=== PATIENT | female | born 1970 | race Caucasian/White ===

== ENCOUNTER 2017-04-21 19:28 | Inpatient (IN) | payer BC ==
[2017-04-21] MEDS ORDERED: 0.9 % SODIUM CHLORIDE 1,000 ML BAG IV ONE ×2 (19:56→21:53)
[2017-04-21] MEDS ORDERED: ACETAMINOPHEN 325 MG TAB PO ONE (19:56)
[2017-04-21] MEDS ORDERED: IBUPROFEN 600 MG TABLET PO ONE (19:56)
--- NOTE | 2017-04-21 20:03 | Emergency Department Record ---
History of Present Illness - General Chief complaint: Rash Stated complaint: CELLULITIS Time Seen by Provider: 04/21/17 19:45 Source: Patient Mode of Arrival: Ambulatory Limitations: No limitations - History of Present Illness Initial comments: The patient is here due to noticing a painful rash to the L lower leg this AM that now is getting worse. She has felt feverish today also and did go to a UC earlier today and was started on Keflex for the cellulitis. Due to not feeling well she came to the ER for further evaluation. The patient denies any weakness , lightheadedness, CP, SOB, or ALFREDO but does state she has a hx of Cellulitis in the past similar to this. She also has been coughing somewhat recently and is a heavy smoker. complaint: Rash Onset/Timin -: Hour(s) Location: LLE Severity: Mild Severity scale (1-10): 5 Quality: Other Consistency: Getting worse Improves with: None Worsens with: None Context: None Associated symptoms: Fever Treatments Prior to Arrival: None - Related Data Allergies Allergy/AdvReac Type Severity Reaction Status Date / Time Penicillins AdvReac Mild PT UNSURE Unverified 04/21/17 19:00 OF REACTION steroids AdvReac pt thinks Uncoded 04/21/17 19:39 it may possibly be causing her cellulitis Travel Screening - Travel/Exposure Within Last 30 Days Have you traveled within the last 30 days?: No - Travel/Exposure Within Last Year Have you traveled outside the [place] in the last year?: No - Additonal Travel Details Have you been exposed to anyone with a communicable illness?: No - Travel Symptoms Symptom Screening: None Review of Systems Constitutional: Reports: Chills, Fever, Malaise Eyes: Denies: Eye discharge ENT: Denies: Congestion Respiratory: Denies: Cough, Dyspnea Past Medical History - SOCIAL HISTORY Smoking Status: Current every day smoker Alcohol Use: Occasional Drug Use: None - RESPIRATORY Hx Respiratory Disorders: No - CARDIOVASCULAR Hx Cardio Disorders: Yes Hx Hypotension: Yes - NEURO Hx Neuro Disorders: No - GI Hx GI Disorders: No - Hx Genitourinary Disorders: No - ENDOCRINE Hx Endocrine Disorders: No - MUSCULOSKELETAL Hx Musculoskeletal Disorders: No - PSYCH Hx Psych Problems: No - HEMATOLOGY/ONCOLOGY Hx Hematology/Oncology Disorders: No Comment:: cellulitis in the past. Family Medical History Any Significant Family History?: No Physical Exam - General General Appearance: Alert, Oriented x3, Cooperative, No acute distress - Head Head exam: Atraumatic, Normocephalic, Normal inspection - Eye Eye exam: Normal appearance, PERRL - ENT Throat exam: Normal inspection. negative: Tonsillar erythema, Tonsillar exudate - Neck Neck exam: Normal inspection, Full ROM. negative: Tenderness - Respiratory Respiratory exam: Normal lung sounds bilaterally. negative: Accessory muscle use, Rales, Respiratory distress, Rhonchi, Stridor, Wheezes - Cardiovascular Cardiovascular Exam: Regular rate, Normal rhythm, Normal heart sounds - GI/Abdominal GI/Abdominal exam: Soft, Normal bowel sounds. negative: Tenderness - Extremities Extremities exam: Normal capillary refill, Tenderness. negative: Normal inspection (There is significant erythema to the medial L lower leg with mild tenderness.), Full ROM - Neurological Neurological exam: Alert. negative: Motor sensory deficit Course Vital Signs 04/21/17 04/21/17 19:31 19:41 Temperature 100.6 F H 101.8 F H Pulse Rate 105 H Pulse Rate [ 108 H Pulse Ox Probe] Respiratory 20 20 Rate Blood Pressure 89/62 Blood Pressure 99/61 [Left Arm] Pulse Ox 93 L 92 L - Reevaluation(s) Reevaluation #1: The patient is doing very well at this time and is very stable. I did discuss the need to stay in the hospital overnight and she does agree. I then did discuss the case with Meenakshi ([employer]) who does accept the patient for Dr. Allen. 04/21/17 21:09 Medical Decision Making - Data Complexity MDM Data: Labs Ordered and/or Reviewed, X-Ray Ordered and/or Reviewed - Lab Data Result diagrams: 04/21/17 20:04 04/21/17 20:04 - Radiology Data Radiology results: Report reviewed (L leg: Neg for any gas. CXR: RLL infiltrate.) Disposition Disposition: Admit Clinical Impression: Cellulitis of lower leg Disposition: Still a Patient at [facility] Decision to Admit: Admit from ER Decision to Admit Date: 04/21/17 Decision to Admit Time: 21:10 Accepting Physician: Tiffany Time Discussed w/Accepting Physician: 21:10 Condition: (2) Stable Time of Disposition: 21:10 Quality - Quality Measures Quality Measures: N/A - Blood Pressure Screening View Details: Yes Does Patient Have Any of the Following: No Blood Pressure Classification: Normal BP Reading Systolic Measurement: 89 Diastolic Measurement: 62 Screening for High Blood Pressure: < Normal BP, F/U Not Required > [G8730]
[2017-04-21] MEDS ORDERED: CEFTRIAXONE SODIUM 1 GM in 0.9 % SODIUM CHLORIDE 100ML 100 ML IVPB ONE (20:04)
[2017-04-21 20:14] LABS: HEMATOCRIT 45.1 % (35.0-47.0); HEMOGLOBIN 15.8 gm/dl (11.6-16.0); MEAN CELL VOLUME 91.3 fl (81-97); MEAN PLATELET VOLUME 10.5 fl (7.4-10.4); PLATELET COUNT 217 K/uL (130-400); RED BLOOD COUNT 4.94 M/uL (3.80-5.40); RED CELL DISTRIBUTION WIDTH 14.2 % (11.5-14.5); WHITE BLOOD COUNT W/O DIFF 17.4 K/uL (4.2-12.2)
[2017-04-21 20:29] LABS: ALKALINE PHOSPHATASE 67 U/L (35-104); ALT/SGPT 43 U/L (<33); AST/SGOT 28 U/L (10.0-35.0); BILIRUBIN,DIRECT 0.2 mg/dL (0-0.3); BLOOD UREA NITROGEN 33.1 mg/dL (12.6-42.6); C-REACTIVE PROTEIN 12.67 mg/L (<5.0); CREATININE 0.9 mg/dL (0.5-0.9); EST GLOMERULAR FILTRATION RATE > 60 mL/min; GLUCOSE,RANDOM 112 mg/dL (74-109)
[2017-04-21] MEDS ORDERED: AZITHROMYCIN 500 MG in 0.9 % SODIUM CHLORIDE 250ML 250 ML IVPB ONE (21:48)
[2017-04-21] MEDS ORDERED: CEFTRIAXONE SODIUM 1 GM in 0.9 % SODIUM CHLORIDE 100ML 100 ML IVPB SCH (23:04)
[2017-04-21] MEDS ORDERED: IBUPROFEN 600 MG TABLET PO PRN (23:04)
[2017-04-21] MEDS ORDERED: ALBUTEROL HFA 8 GM INHALER INH SCH (23:04)
[2017-04-22] MEDS: ACETAMINOPHEN 500 MG TABLET PO PRN ×2 (04:36→16:40)
--- NOTE | 2017-04-22 07:17 | RADIOLOGY REPORT ---
EXAM: LEFT LOWER LEG HISTORY: PAIN. TECHNIQUE: Two views of the left lower leg were obtained. Comparison: None. Encounter: Initial. FINDINGS: Negative for fracture or dislocation. The soft tissues are unremarkable. IMPRESSION: NEGATIVE LEFT LOWER LEG EXAMINATION. JOB NUMBER: [id number] MTDD
--- NOTE | 2017-04-22 07:19 | RADIOLOGY REPORT ---
EXAM: CHEST, TWO VIEWS HISTORY: COUGH. TECHNIQUE: Frontal and lateral views of the chest were obtained. Comparison: None. FINDINGS: The heart size is normal. Air space opacity of the right middle lobe and right lung base consistent with pneumonia. Small right pleural effusion also noted. No pneumothorax. Scarring in the left perihilar region. IMPRESSION: RIGHT MIDDLE/RIGHT LOWER LOBE PNEUMONIA. SMALL RIGHT PLEURAL EFFUSION. RECOMMEND FOLLOW-UP UNTIL RESOLUTION. JOB NUMBER: [id number] MTDD
[2017-04-22] MEDS: LORATADINE 10 MG TABLET PO SCH (09:11)
[2017-04-22 09:32] LABS: BASO % 0.2 % (0-6); GRAN % 78.4 % (47-80); HEMATOCRIT 42.2 % (35.0-47.0); HEMOGLOBIN 14.5 gm/dl (11.6-16.0); LYMPH % 10.3 % (16-45); MEAN CELL VOLUME 93.6 fl (81-97); MEAN CORPUSCULAR HEMOGLOBIN 32.2 pg (27-33); MEAN CORPUSCULAR HGB CONC 34.4 g/dl (32-36); MEAN PLATELET VOLUME 10.2 fl (7.4-10.4); MONO % 11.1 % (0-9); PLATELET COUNT 197 K/uL (130-400); RED BLOOD COUNT 4.51 M/uL (3.80-5.40); RED CELL DISTRIBUTION WIDTH 14.3 % (11.5-14.5); WHITE BLOOD COUNT W/O DIFF 8.7 K/uL (4.2-12.2)
[2017-04-22] MEDS: ALBUTEROL HFA 8 GM INHALER INH PRN ×2 (10:31→19:11)
--- NOTE | 2017-04-22 10:31 | History & Physical ---
History of Present Illness - Date of Service Date of Service for History & Physical: 04/22/17 - History of Present Illness Admitting Diagnosis: 1. Acute L leg Cellulitis History of Present Illness: Mrs. Fitzgerald is a 46 y/o female who presents with complaint of cough productive of yellow sputum since the weekend and subsequent left lower extremity robledo and swelling beginning yesterday. She went to an urgent care facility in [place] on Thursday with complaint of 'cold like' symptoms and at the time was given a steroid injection, but is not quite sure why. Her symptoms progressed and she began feeling weak, had fevers continued cough and noticed severe left leg pain , swelling and rash developing over her david/calf. The patient denies any leg injury, scratches, skin abrasions, history of clots, easy bruising or bleeding disorders. She returned to the urgent care yesterday and was given one dose of Keflex, with prescription for home dosing. Having continuous pain of the leg and no resolution of symptoms the patient decided to come into the [facility] ED and at that time was found to have right middle /lower lobe infiltrates and small pleural effusion. In addition she was noted to have a severe cellulitis of the left lower extremity but xray was negative for any extensive soft tissue swelling or fracture. She was started on empiric antibiotics and admitted to the general medical floor for further evaluation. Travel Screening - Travel/Exposure Within Last 30 Days Have you traveled within the last 30 days?: No - Travel/Exposure Within Last Year Have you traveled outside the [place] in the last year?: No - Additonal Travel Details Have you been exposed to anyone with a communicable illness?: No - Travel Symptoms Symptom Screening: None Review of Systems Constitutional: Reports: Chills, Fever, Malaise Eyes: Denies: Eye discharge ENT: Denies: Congestion Respiratory: Reports: Cough (productive of green/yellow phlegm ). Denies: Dyspnea Endocrine: Reports: As per HPI. Denies: Fatigue, Heat or cold intolerance, Polydipsia, Polyuria Gastrointestinal: Reports: As per HPI. Denies: Abdominal pain, Constipation, Diarrhea, Hematemesis, Hematochezia, Melena, Nausea, Vomiting Genitourinary: Reports: As per HPI. Denies: Abnormal menses, Discharge, Dyspareunia, Dysuria, Frequency, Hematuria, Incontinence, Retention, Urgency Musculoskeletal: Reports: Other (left leg pain and swelling) Skin: Reports: Other (left leg pain/tenderness ) Neurological: Reports: Headache Psychiatric: Reports: As per HPI. Denies: Anxiety, Auditory hallucinations, Depression, Homicidal thoughts, Suicidal thoughts, Visual hallucinations Hematological/Lymphatic: Denies: Anemia, Blood Clots, Easy bleeding, Easy bruising Past Medical History - SOCIAL HISTORY Smoking Status: Current every day smoker Alcohol Use: Occasional Drug Use: None - RESPIRATORY Hx Respiratory Disorders: No Hx COPD: No - CARDIOVASCULAR Hx Cardio Disorders: No Hx Hypotension: Yes Hx Vascular Disease: Yes (varicosties s/p bilateral LE stripping) - NEURO Hx Neuro Disorders: No - GI Hx GI Disorders: No - Hx Genitourinary Disorders: No - ENDOCRINE Hx Endocrine Disorders: No Hx Diabetes: No - MUSCULOSKELETAL Hx Musculoskeletal Disorders: No - PSYCH Hx Psych Problems: No Hx Depression: No - HEMATOLOGY/ONCOLOGY Hx Hematology/Oncology Disorders: No Hx Blood Disorders: No Hx Bruising: No Hx Clotting Problems: No Hx Unexplained Bleeding: No Comment:: cellulitis in the past. Family Medical History Any Significant Family History?: Yes Hx Cancer: Mother Hx Diabetes: Father Hx Heart Disease: Father H&P Meds/Allergies - Allergies Allergies: Allergies Allergy/AdvReac Type Severity Reaction Status Date / Time Penicillins AdvReac Mild PT UNSURE Unverified 04/21/17 19:00 OF REACTION steroids AdvReac pt thinks Uncoded 04/21/17 19:39 it may possibly be causing her cellulitis - Active Medications Active Medications: Current Medications Acetaminophen (Tylenol 500mg Tab) 650 mg PO Q6H PRN PRN Reason: PAIN/TEMP Last Admin: 04/22/17 04:36 Dose: 650 mg Acetaminophen/Codeine Phosphate (Tylenol #3) 1 udtab PO Q4H PRN PRN Reason: Pain - General Albuterol Sulfate (Ventolin Hfa) 2 puff INH Q4H PRN PRN Reason: SHORTNESS OF BREATH Enoxaparin Sodium (Lovenox) 40 mg SQ DAILY [facility] Ceftriaxone Sodium 1 gm/ (Sodium Chloride) 100 mls @ 100 mls/hr IVPB Q12H RONAK Stop: 04/26/17 23:05 Last Admin: 04/21/17 23:38 Dose: Not Given Ibuprofen (Motrin 600mg) 600 mg PO Q8H PRN PRN Reason: FEVER/PAIN Loratadine (Claritin) 10 mg PO DAILY RONAK Last Admin: 04/22/17 09:11 Dose: 10 mg Physical Exam - Vital Signs Vital Signs: Vital Signs - Last 24 Hrs Temp Pulse Resp BP BP Pulse Ox 04/22/17 09:15 99.2 F 90 18 92/62 92 L 04/22/17 05:00 98.5 F 98 H 20 119/71 95 04/21/17 23:04 98.7 F 80 18 85/52 93 L - General General Appearance: Alert, Oriented x3, Cooperative, No acute distress Limitations: No limitations - Head Head exam: Atraumatic, Normocephalic, Normal inspection Head exam detail: Other (hyperpigmentation of face ) - Eye Eye exam: Normal appearance, PERRL - ENT Throat exam: Normal inspection. negative: Tonsillar erythema, Tonsillar exudate - Neck Neck exam: Normal inspection, Full ROM. negative: Tenderness - Respiratory Respiratory exam: Normal lung sounds bilaterally. negative: Accessory muscle use, Rales, Respiratory distress, Rhonchi, Stridor, Wheezes - Cardiovascular Cardiovascular Exam: Regular rate, Normal rhythm, Normal heart sounds - GI/Abdominal GI/Abdominal exam: Soft, Normal bowel sounds. negative: Tenderness - Rectal Rectal exam: Deferred - exam: Deferred - Extremities Extremities exam: Normal capillary refill, Tenderness (left lower extremity pain ant/post with radiation from knee to ankle. + Robin's sign ). negative: Normal inspection (There is significant erythema to the medial L lower leg with mild tenderness.), Full ROM - Neurological Neurological exam: Alert, CN II-XII intact, Normal gait, Oriented X3. negative : Motor sensory deficit - Psychiatric Psychiatric exam: negative: Anxious, Depressed - Skin Skin exam: negative: Other (left distal lower extremity hyperpigmentation, erythema ) Type of lesion: Rash Results - Labs Result Diagrams: 04/22/17 09:26 04/21/17 20:04 Labs Last 24 Hours: Laboratory Results - last 24 hr 04/22/17 09:26 WBC 8.7 RBC 4.51 Hgb 14.5 Hct 42.2 MCV 93.6 MCH 32.2 MCHC 34.4 RDW 14.3 Plt Count 197 MPV 10.2 Gran % 78.4 Lymphocytes % 10.3 L Monocytes % 11.1 H Eosinophils % 0.0 Basophils % 0.2 VTE H&P Assessment - Risk for VTE Risk for VTE: Yes Risk Level: Moderate Risk Assessment Date: 04/22/17 Risk Assessment Time: 10:38 VTE Orders Placed or Will Be Placed: Yes Plan - Inpatient Certification Inpatient Certification: Admit to inpatient care: Based on my medical assessment, after consideration of patient's risk factors (age, co-morbidities and patient presenting symptoms and acuity), I expect that this patient will remain in the hospital greater than or equal to two midnights and that the services needed warrant inpatient care because: Patient Risk Factors: [Smoking, previous hx of cellulitis] Estimated length of stay: [ 2 days] The patient may reasonably be expected to be discharged or transferred to a hospital within 96 hours after admission to [facility]. Services needed: [] I certify that my determination is in accordance with my understanding of Medicare requirements for reasonable and necessary inpatient services. - Detailed Diagnosis and Plan (1) Sepsis Plan: Sepsis secondary to: CAP and left lower extremity cellulitis. - patient presents with productive cough/fever/hypotensive and elevated WBCs 17.7 --> 8.7 - CXR - shows evidence of RLL infiltrate, ordered sputum G/C, would be ideal if obtained prior to empiric abx. - received 1 liter Nacl 0.9% bolus, cont fluids @ 125mL/hr. Abx: Ceftriaxone/ Azithromycin IV as ordered. - will f/u BCX and sputum G/C. Current Visit: Yes Status: Acute Base Code: A41.9 - SEPSIS, UNSPECIFIED ORGANISM (2) Left leg cellulitis Plan: - left leg swelling, tenderness and well demarcated erythema. - xray is not suggestive of any acute dislocation/fracture, or soft tissues swelling. - cont antibiotics: Ceftriaxone/Azithromycin IV, will change to PO Abx pending cultures. - started Tylenol #3, 1 tab Q4H PRN Current Visit: Yes Status: Acute Base Code: L03.116 - CELLULITIS OF LEFT LOWER LIMB Onset Date: ~04/20/17 (3) Community acquired pneumonia Plan: - CXR shows: right middle/lower lobe infiltrate. CURB -65 score 0 - pending blood cultures, sputum G/C - continue antibiotics: Azithromycin/Ceftriaxone IV, change to PO meds pending labs. - oxygen via nasal cannula to maintain sats > 92%, respiratory treatments w/ albuterol Q4H PRN Current Visit: Yes Status: Acute Base Code: J18.9 - PNEUMONIA, UNSPECIFIED ORGANISM (4) Hyponatremia Plan: - mild hyponatremia, likely due to dehydration from sepsis. - replete fluids and repeat morning electrolytes. Current Visit: Yes Status: Acute Base Code: E87.1 - HYPO-OSMOLALITY AND HYPONATREMIA (5) Tobacco abuse Plan: - 20pk/yr smoking hx as per patient. - will order nicotine daily patch. Current Visit: Yes Status: Acute Base Code: Z72.0 - TOBACCO USE (6) Tobacco abuse counseling Plan: - smoking cessation advised - patient has expressed a willingness to quit and we would recommend outpatient support in this regard. Current Visit: Yes Status: Acute Base Code: Z71.6 - TOBACCO ABUSE COUNSELING (7) Full code status Plan: - patient is FULL CODE at this time. Current Visit: Yes Status: Acute Base Code: Z78.9 - OTHER SPECIFIED HEALTH STATUS - Disposition At this time the patient is in stable condition. I anticipate that she will be d /cd in 2-3 days with antibiotic course to be completed at home.
[2017-04-22] MEDS: CEFTRIAXONE SODIUM 1 GM in 0.9 % SODIUM CHLORIDE 100ML 100 ML IVPB SCH ×2 (10:44→23:09)
[2017-04-22] MEDS: ACETAMINOPHEN W/ CODEINE 300MG/30MG TABLET PO PRN ×2 (10:45→16:40)
--- NOTE | 2017-04-22 14:44 | Inpatient Certification ---
Inpatient Certification Admit to inpatient care: Based on my medical assessment, after consideration of patient's risk factors (age, co-morbidities and patient presenting symptoms and acuity), I expect that this patient will remain in the hospital greater than or equal to two midnights and that the services needed warrant inpatient care because: Estimated length of stay: [2] The patient may reasonably be expected to be discharged or transferred to a hospital within 96 hours after admission to [facility]. I certify that my determination is in accordance with my understanding of Medicare requirements for reasonable and necessary inpatient services. 04/22/17 14:43
[2017-04-22] MEDS: NICOTINE 21 MG/24 HOUR PATCH TD SCH ×2 (16:35→17:12)
[2017-04-22] MEDS: HYDROCODONE/APAP 7.5/325MG TABLET PO SCH ×2 (19:28→23:09)
[2017-04-23] MEDS: ALBUTEROL HFA 8 GM INHALER INH PRN ×2 (04:15→20:00)
[2017-04-23] MEDS: HYDROCODONE/APAP 7.5/325MG TABLET PO SCH ×6 (04:16→23:54)
[2017-04-23] MEDS: ENOXAPARIN 40 MG/0.4 ML SYR SQ SCH (09:20)
[2017-04-23] MEDS: LORATADINE 10 MG TABLET PO SCH (09:20)
[2017-04-23] MEDS: CEFTRIAXONE SODIUM 1 GM in 0.9 % SODIUM CHLORIDE 100ML 100 ML IVPB SCH (10:37)
[2017-04-23] MEDS ORDERED: CEFDINIR 300 MG CAPSULE PO ONE (13:50)
[2017-04-23] MEDS: AZITHROMYCIN 500 MG TABLET PO SCH (14:40)
[2017-04-23] MEDS: NICOTINE 21 MG/24 HOUR PATCH TD SCH (15:25)
[2017-04-24] MEDS: HYDROCODONE/APAP 7.5/325MG TABLET PO SCH (04:38)
--- NOTE | 2017-04-24 07:16 | US VENOUS DOPPLER REPORT ---
EXAM: VENOUS DOPPLER ULTRASOUND OF THE BILATERAL LOWER EXTREMITIES HISTORY: CELLULITIS. TECHNIQUE: Chapa scale, color Doppler and Duplex Doppler evaluation of the deep venous structures of each lower extremity was performed from the level of the common femoral vein through the lower legs. Comparison: Two view radiographic examination of the left lower leg dated . FINDINGS: RIGHT LOWER EXTREMITY: The deep venous structures are well visualized from the common femoral vein through the lower leg. They are anechoic and easily compressible. Normal Doppler venous waveforms are noted from the common femoral vein level to the popliteal vein level and are augmentable. No soft tissue abnormality. LEFT LOWER EXTREMITY: The deep venous structures are well visualized from the common femoral vein through the lower leg veins. These are anechoic and compressible. Normal venous waveforms are noted from the common femoral vein level through the popliteal vein level and are augmentable. There is a normal appearing lymph node within the medial left thigh measuring 1 cm short axis diameter. IMPRESSION: NO EVIDENCE OF DEEP VENOUS THROMBOSIS WITHIN EITHER LOWER EXTREMITY. NORMAL APPEARING LYMPH NODE IN THE MEDIAL LEFT THIGH MEASURING 10 MM IN SHORT AXIS DIAMETER. JOB NUMBER: [id number] [facility]
--- NOTE | 2017-04-24 08:30 | Discharge Summary ---
Providers Discharge Summary Date: 04/24/17 Date of admission: 04/21/17 22:55 Attending physician: LANCE CORLEY Physical Exam - Vital Signs Vital Signs: Vital Signs - Last 24 Hrs Temp Pulse Pulse Resp BP Pulse Ox 04/23/17 20:00 98.7 F 80 81 16 95/61 95 04/23/17 12:00 87 18 92/52 94 L 04/23/17 09:00 87 18 - General General Appearance: Alert, Oriented x3, Cooperative, No acute distress Limitations: No limitations - Head Head exam: Atraumatic, Normocephalic, Normal inspection Head exam detail: Other (hyperpigmentation of face ) - Eye Eye exam: Normal appearance, PERRL - ENT Throat exam: Normal inspection. negative: Tonsillar erythema, Tonsillar exudate - Neck Neck exam: Normal inspection, Full ROM. negative: Tenderness - Respiratory Respiratory exam: Normal lung sounds bilaterally. negative: Accessory muscle use, Rales, Respiratory distress, Rhonchi, Stridor, Wheezes - Cardiovascular Cardiovascular Exam: Regular rate, Normal rhythm, Normal heart sounds - GI/Abdominal GI/Abdominal exam: Soft, Normal bowel sounds. negative: Tenderness - Rectal Rectal exam: Deferred - exam: Deferred - Extremities Extremities exam: Normal capillary refill, Tenderness (left lower extremity pain ant/post with radiation from knee to ankle. + Robin's sign ). negative: Normal inspection (There is significant erythema to the medial L lower leg with mild tenderness.), Full ROM - Neurological Neurological exam: Alert, CN II-XII intact, Normal gait, Oriented X3. negative : Motor sensory deficit - Psychiatric Psychiatric exam: negative: Anxious, Depressed - Skin Skin exam: negative: Other (left distal lower extremity hyperpigmentation, erythema ) Type of lesion: Rash Hospitalization - Hospitalization Admission Diagnosis: 1. Acute L leg Cellulitis - Problem List/Discharge Diagnosis (1) Sepsis Plan: Sepsis secondary to: CAP and left lower extremity cellulitis. - patient presents with productive cough/fever/hypotensive and elevated WBCs 17.7 --> 8.7 - CXR - shows evidence of RLL infiltrate, ordered sputum G/C, would be ideal if obtained prior to empiric abx. - received 1 liter Nacl 0.9% bolus, cont fluids @ 125mL/hr. Abx: Ceftriaxone/ Azithromycin IV as ordered. - will f/u BCX and sputum G/C. Current Visit: Yes Status: Resolved Base Code: A41.9 - SEPSIS, UNSPECIFIED ORGANISM (2) Left leg cellulitis Plan: - left leg swelling, tenderness and well demarcated erythema. - xray is not suggestive of any acute dislocation/fracture, or soft tissues swelling. - patient was on Ceftriaxone/Zithromax, changed to Zithromax/Cefidir QD to be continued home for a remaining 3 days. - there was suspicion of DVT after she had increasing pain and swelling but the lower ext doppler US was negative Current Visit: Yes Status: Acute Base Code: L03.116 - CELLULITIS OF LEFT LOWER LIMB Onset Date: ~04/20/17 (3) Community acquired pneumonia Plan: - CXR shows: right middle/lower lobe infiltrate. CURB -65 score 0 - pending blood cultures, sputum G/C - continue antibiotics: Azithromycin/Ceftriaxone IV, change to PO meds pending labs. - oxygen via nasal cannula to maintain sats > 92%, respiratory treatments. - symptoms improved with no wheezing/ronchi. Follow up CXR on office visit. Current Visit: Yes Status: Acute Base Code: J18.9 - PNEUMONIA, UNSPECIFIED ORGANISM (4) Hyponatremia Current Visit: Yes Status: Resolved Base Code: E87.1 - HYPO-OSMOLALITY AND HYPONATREMIA (5) Tobacco abuse Plan: - 20pk/yr smoking hx as per patient. - will order nicotine daily patch. Current Visit: Yes Status: Chronic Base Code: Z72.0 - TOBACCO USE (6) Tobacco abuse counseling Plan: - smoking cessation advised - patient has expressed a willingness to quit and we would recommend outpatient support in this regard. Current Visit: Yes Status: Chronic Base Code: Z71.6 - TOBACCO ABUSE COUNSELING (7) Full code status Current Visit: Yes Status: Acute Base Code: Z78.9 - OTHER SPECIFIED HEALTH STATUS - Disposition At this time the patient is in stable condition. D/C home today - Hospitalization Course Disposition: Home, Self-Care Hospital Course: 46 y/o female who presents with cough productive of yellow sputum and subsequent cellulitis of the left lower extremity and clinically the appearance of sepsis. He symptoms improved on Ceftriaxone/Azithromycin, IV fluids and pain medication. Cultures of blood have been negative to date, however there was concern for DVT as the symptoms worsened on day #2 of admission. US doppler b/l lower ext was negative for DVT and the patient is stable for discharge with continued dosing of PO antibiotics. Procedures: Imaging and X-Rays 04/23/17 19:21 VENOUS DOPPLER LOWER EXT CHELSEY [US] Stat Abnormal Labs: Abnormal Lab Results 04/22/17 Range/Units 09:26 Lymphocytes % 10.3 L (16-45) % Monocytes % 11.1 H (0-9) % Condition at Discharge: (2) Stable VTE Discharge VTE Reason For No Overlap Therapy: Not Indicated AMI Discharge Plan AMI Reason For No ASA at DC: Not Indicated Discharge Medications - Discharge Medications Prescriptions: Azithromycin [Zithromax] 500 mg PO DAILY #3 tab Cefdinir 300 mg PO NOW #6 capsule Hydrocodone/Acetaminophen [[place] 7.5mg/325mg] 1 tab PO Q6H PRN #14 tab PRN Reason: Pain - General Home Medications: Ambulatory Orders Cetirizine HCl [Zyrtec] 10 mg PO DAILY cap 04/21/17 [Last Taken Unknown] Azithromycin [Zithromax] 500 mg PO DAILY #3 tab 04/24/17 [Last Taken Unknown] Cefdinir 300 mg PO NOW #6 capsule 04/24/17 [Last Taken Unknown] Hydrocodone/Acetaminophen [[place] 7.5mg/325mg] 1 tab PO Q6H PRN #14 tab 04/24/17 [Last Taken Unknown] Discharge Plan - Discharge Instructions Activity at Discharge: Increase Activity as Tolerated Diet at Discharge: Regular Diet Quality Measures - Quality Measures Quality Measures: Documentation of Current Medications in Medical Record, Screening for High Blood Pressure and F/U Documented - Current Medications Quality Measure: Measure #130: Documentation of Current Medications Documentation of Current Medications: <Current Medications Documented/Reviewed> [G8427] - Blood Pressure Screening Quality Measure: Screening for High Blood Pressure and Follow-Up Documented Does Patient Have Any of the Following: No Blood Pressure Classification: Normal BP Reading Systolic Measurement: 89 Diastolic Measurement: 62 Screening for High Blood Pressure: < Normal BP, F/U Not Required > [G8783] - Elder Abuse Suspicion Index EASI Reference Information: Aidee WASHBURN, Horacio C, Joyce D, Lucy Kowalski.Development and validation of a tool to assist physicians identification of elder abuse: The Elder Abuse Suspicion Index (EASI ). Journal of Elder Abuse and Neglect, 2008; 20 (3): 276-300.
[2017-04-24] MEDS: AZITHROMYCIN 500 MG TABLET PO SCH (09:49)
[2017-04-24] MEDS: ENOXAPARIN 40 MG/0.4 ML SYR SQ SCH (09:49)
[2017-04-24] MEDS: LORATADINE 10 MG TABLET PO SCH (09:50)
--- NOTE | 2017-04-28 10:57 | Physician Addendum ---
Addendum (Physician) 04/28/17 10:53 Patient called back this am asking for more medication for her leg pain. She was discharged on 04/24, after having been diagnosed and treated for left leg cellulitis. She was d/cd on [place] 7.5/325mg 14 tabs. Today I am writing for another 20 tabs PRN in addition to Ibuprofen 600mg 24 tabs Q6H. I've messaged ALPHONSE Juarez regarding the patient.
== END 2017-04-24 10:39 | disposition home or self-care (01) | DRG 602 ==
LOC: ER 19:28 → MEDSURG 22:55 → OBSVTOIN 22:55
PROVIDERS: ADMIT Family Medicine; ATTEND Family Medicine
DX: L03.116 Cellulitis of left lower limb (principal); J18.9 Pneumonia, unspecified organism; J91.8 Pleural effusion in other conditions classified elsewhere; E87.1 Hypo-osmolality and hyponatremia; F17.200 Nicotine dependence, unspecified, uncomplicated; Z71.6 Tobacco abuse counseling
CPT/HCPCS: 71020; 80048; 80076; 83605; 85025; 85027; 86140; 93970; 94640; 96365; 96375; 99223; 99239; 99285; J0456; J1650; J7030; J7050